=== PATIENT | male | born 1965 | race Native Hawaiian/Other Pacific Islander ===

== ENCOUNTER 2016-12-17 12:41 | Emergency (ER) | payer OTHER ==
[~2016-12-17] VITALS: Ht 180.3 cm; Wt 70.8 kg
[2016-12-17 12:40] VITALS: BP 121/74; TEMP 98.1
== END 2016-12-17 13:34 | disposition left against medical advice (07) ==
LOC: ED 12:41
DX: R23.9 Unspecified skin changes (principal); I73.9 Peripheral vascular disease, unspecified
CPT/HCPCS: 96374; 99281

== ENCOUNTER 2017-03-20 15:59 | Emergency (ER) | payer OTHER ==
[~2017-03-20] VITALS: Ht 177.8 cm; Wt 59.0 kg
[2017-03-20 16:27] VITALS: TEMP 98.6
[2017-03-20 16:58] VITALS: BP 131/92
== END 2017-03-20 17:00 | disposition home or self-care (01) ==
LOC: ED 15:59
DX: Z48.02 Encounter for removal of sutures (principal)
CPT/HCPCS: 99282